=== PATIENT | male | born 1955 | race Caucasian/White ===

== ENCOUNTER 2018-07-18 17:29 | Emergency (ER) | payer OTHER, SELFPAY ==
[2018-07-18 17:33] VITALS: BP 148/81; PULSE 64; RESP 14; TEMP 36.9; O2SAT 99; BMI 28.5
[2018-07-18 19:51] VITALS: BP 154/81; PULSE 60; RESP 16; O2SAT 96
--- NOTE | 2018-07-18 19:51 | ED.RECABL ---
HPI - Recheck/Abnormal Lab/Rx General Chief Complaint: Recheck/Abnormal Lab/Rx Stated Complaint: states bitten by tick with lyme disease 2wks ago Time Seen by Provider: 07/18/18 18:04 Source: patient and family Mode of arrival: ambulatory Limitations: no limitations History of Present Illness HPI narrative: 62-year-old male nonsmoker presents with chief concern of medication refill. He was in [place] a few weeks ago and was bitten by a tick. He has had no symptoms including rash, trouble breathing or neurologic findings nor any arthritis. He was placed on 2 weeks of doxycycline and a confirmatory test suggested Lyme disease was present in the take. He and presents stating they would have preferred to take in the four-week approach as opposed to the 2 weeks that were written (of doxycycline). He has just returned home and cannot see his PCP on [place] until . complaint: medication refill request Initial visit (ago): week(s) Initial visit for: other Returns today for: request for prescription Symptoms since prior visit: no new symptoms Associated symptoms: none Treatments prior to arrival: given antibiotics on Related Data Home Medications Medication Instructions Recorded Confirmed omeprazole 1 cap PO BID 07/18/18 07/18/18 Previous Rx's Medication Instructions Recorded doxycycline hyclate 100 mg PO BID 14 Days #28 tab 07/18/18 Allergies Allergy/AdvReac Type Severity Reaction Status Date / Time No Known Drug Allergies Allergy Verified 07/18/18 17:36 Review of Systems Constitutional Denies chills, Denies fever(s), Denies lethargy and Denies weakness Eyes Denies change in vision, Denies eye discharge, Denies irritation and Denies loss of vision ENT Ears, Nose, Mouth, and Throat: Denies change in voice, Denies neck pain and Denies sore throat Cardiovascular Denies chest pain, Denies irregular heart rhythm, Denies lightheadedness, Denies palpitations, Denies dyspnea, Denies dyspnea on exertion and Denies orthopnea Respiratory Denies cough, Denies dyspnea, Denies dyspnea on exertion and Denies wheezing Gastrointestinal Gastrointestinal: Denies abdominal pain, Denies change in bowel habits, Denies diarrhea, Denies nausea and Denies vomiting Genitourinary Denies hematuria, Denies flank pain, Denies urinary incontinence and Denies urinary urgency Musculoskeletal Denies neck pain Integumentary/Breasts Denies pruritus, Denies erythema, Denies rash and Denies wounds Neurologic Denies confusion, Denies loss of vision and Denies weakness Psychiatric Denies anxiety, Denies confusion, Denies depression, Denies homicidal ideation and Denies suicidal ideation Endocrine Denies palpitations Hematologic/Lymphatic Denies easy bruising Allergic/Immunologic Denies wheezing PFSH Social History Smoking Status: Never smoker Social History Smoking Status: Never smoker Exam Narrative Exam Narrative: GEN: AOx3 and in mild distress EYES: Pupils are equal, round, and reactive to light and accommodation. Extraoccular muscles are intact bilaterally. There is no subconjunctival hemorrhage or exudate. CHEST: Lungs are clear to auscultation bilaterally and free of wheezes, rales, or rhonchi. Heart rate is regular rhythm, there are no murmurs, clicks, rubs, or gallops. There is no chest wall tenderness. ABD: Abdomen is soft and nontender. There is no guarding or rebound. Bowel sounds are normal in all 4 quadrants. There is no mass or organomegaly. EXT: Full painless ROM of all extremities with no loss of sensation or strength. SKIN: Warm, pink, and dry. No erythema or rash Initial Vital Signs Initial Vital Signs: Vital Signs Temperature 98.4 F 07/18/18 17:33 Pulse Rate 64 07/18/18 17:33 Respiratory Rate 14 07/18/18 17:33 Blood Pressure 148/81 H 07/18/18 17:33 Pulse Oximetry 99 07/18/18 17:33 Course Vital Signs - 8 hr 07/18/18 17:33 07/18/18 19:51 Temperature 98.4 F Pulse Rate 64 60 Respiratory Rate 14 16 Blood Pressure 148/81 H Blood Pressure [Right Arm] 154/81 H Pulse Oximetry 99 96 Discharge Plan Departure Patient Disposition: Home Clinical Impression: Encounter for medication refill, Risk of exposure to Lyme disease Discharge Date/Time: 07/18/18 19:56 Instructions: DI for Lyme Disease Activity Restrictions/Additional Instructions: *You have been diagnosed with [ visit for med refill] *What to do: *Take medications as directed *Follow up with your primary care provider in 2-3 days, call for an appointment. Let them know you were seen in the Emergency Department and that we ask that you be seen in follow up *Return to ER if you should have any new, worsening or concerning symptoms Prescriptions: New doxycycline hyclate 100 mg tablet 100 mg PO BID 14 Days Qty: 28 RF: 0 No Action omeprazole 20 mg Tablet,Disintegrat, Delay Rel 1 cap PO BID RF: 0 Referrals: Williams Nick MD [Primary Care Provider] -
== END 2018-07-18 19:56 | disposition home or self-care (01) ==
PROVIDERS: Emergency Provider Emergency Medicine; Family Provider Family Medicine; PCP Family Medicine
DX: Z76.0 Encounter for issue of repeat prescription (principal)
CPT/HCPCS: 99281; 99282